=== PATIENT | female | born 1965 | race African-American/Black ===

== ENCOUNTER 2017-03-12 10:51 | Emergency (ER) | payer MEDICARE ==
[~2017-03-12] VITALS: Ht 170.2 cm; Wt 69.9 kg
[2017-03-12] MEDS ORDERED: methylPREDNISolone SOD SUCC PF 125 MG/2 ML VIAL. IM ONE (12:00)
[2017-03-12] MEDS ORDERED: PRED20TA PO (12:02)
--- NOTE | 2017-03-12 12:03 | PHYS DOC ---
Adult General Chief Complaint Chief Complaint: SKIN PROBLEM HPI HPI Patient is a 51 year old female presents to the emergency department stating that she is having bilateral hand pain and discomfort with swelling. Patient states the area burn stings and is very irritated. She states that she is also placed cream on the areas for athlete's foot taking that this would help. She states that this is been going on for the last Monday. She denies any shortness of air difficulty breathing. She did states that she had seen Dr. Jimenes on who had recommended a steroid shot in which she refused at that time. She states that she would like to have shot now. Patient's hands do appear to be slightly swollen however no redness or drainage or discharge noted from the areas. Review of Systems Review of Systems Constitutional: Denies fever or chills [] Eyes: Denies change in visual acuity, redness, or eye pain [] HENT: Denies nasal congestion or sore throat [] Respiratory: Denies cough or shortness of breath [] Cardiovascular: No additional information not addressed in HPI [] GI: Denies abdominal pain, nausea, vomiting, bloody stools or diarrhea [] : Denies dysuria or hematuria [] Musculoskeletal: Denies back pain or joint pain [] Integument: Denies rash or skin lesions. Complaint of bilateral hand swelling. Neurologic: Denies headache, focal weakness or sensory changes [] Endocrine: Denies polyuria or polydipsia [] Physical Exam Physical Exam Constitutional: Well developed, well nourished, no acute distress, non-toxic appearance. [] HENT: Normocephalic, atraumatic, bilateral external ears normal, oropharynx moist, no oral exudates, nose normal. [] Eyes: PERRLA, EOMI, conjunctiva normal, no discharge. [] Neck: Normal range of motion, no tenderness, supple, no stridor. [] Cardiovascular:Heart rate regular rhythm, no murmur [] Lungs & Thorax: Bilateral breath sounds clear to auscultation [] Skin: Warm, dry, no erythema, no rash. Bilateral hand swelling with no redness drainage or discharge from the site. Extremities: No tenderness, no cyanosis, no clubbing, ROM intact, no edema. [] Neurologic: Alert and oriented X 3, normal motor function, normal sensory function, no focal deficits noted. [] Psychologic: Affect normal, judgement normal, mood normal. [] EKG EKG [] Radiology/Procedures Radiology/Procedures [] Course & Med Decision Making Course & Med Decision Making Pertinent Labs and Imaging studies reviewed. (See chart for details) Patient will be discharged home with recommendations to follow-up with her primary care physician in the next 3-5 days. She'll be provided with a prescription of prednisone. She was provided with a Solu-Medrol injection here in the emergency department. Recommended Benadryl 25 mg every 6 hours for itching and irritation. Recommended to keep the areas clean dry and cool. Recommended using soap and water to clean the areas. Patient agrees with discharge instructions, treatment regimens and follow-up recommendations. Signs and symptoms to return back to emergency department has been provided. All questions and concerns been answered at patient's bedside. [] Dragon Disclaimer Dragon Disclaimer This electronic medical record was generated, in whole or in part, using a voice recognition dictation system. Departure Departure Impression: Primary Impression: Contact dermatitis Disposition: 01 HOME, SELF-CARE Condition: STABLE Referrals: NON,STAFF (PCP) Patient Instructions: Contact Dermatitis, [id number] Additional Instructions: Keep the areas clean and dry. You may use soap and water to clean the areas as needed. Keep the areas cool by placing ice packs on the areas several times a day. Elevation as much as possible. Benadryl 25 mg every 6 hours. This medication will cause drowsiness do not take any be alert and oriented. Medication as prescribed. Follow-up with your primary care physician in the next 3-5 days. Return back to emergency prior signs symptoms become worse. Scripts Prednisone (PREDNISONE) 20 Mg Tablet 40 MG PO DAILY for 7 Days, #14 TAB Prov: MATTHEW HOFFMAN APRN 03/12/17 Problem Qualifiers Primary Impression: Contact dermatitis Contact dermatitis type: unspecified Contact dermatitis trigger: unspecified trigger Qualified Codes: L25.9 - Unspecified contact dermatitis, unspecified cause MATTHEW HOFFMAN APRN Mar 12, 2017 12:03
[2017-03-12 12:10] VITALS: BP 123/78
== END 2017-03-12 12:40 | disposition home or self-care (01) ==
LOC: ER 10:51
DX: L25.9 Unspecified contact dermatitis, unspecified cause (principal); M79.642 Pain in left hand; M79.641 Pain in right hand
CPT/HCPCS: 96372; 99283; J2930

== ENCOUNTER → 2017-08-04 | Outpatient (CLI) | payer MEDICARE ==
[~2017-08-04] MED LIST: CONTRAST GIVEN MC
[2017-08-04] MEDS: IOHEXOL 240 MG/ML 50ML VIAL. PO (07:45)
[2017-08-04] MEDS: IOHEXOL 300 MG/ML 100ML VIAL. IV (09:24)
== END | disposition home or self-care (01) ==
LOC: CT 15:48
DX: R19.00 Intra-abdominal and pelvic swelling, mass and lump, unspecified site (principal); Z85.3 Personal history of malignant neoplasm of breast; Z85.41 Personal history of malignant neoplasm of cervix uteri
CPT/HCPCS: 71260; 74177; Q9966; Q9967